=== PATIENT | male | born 1985 | race Caucasian/White ===

== ENCOUNTER 2021-10-22 12:25 | Emergency (ER) | payer SELFPAY ==
[2021-10-22 12:40] VITALS: BP 140/91; PULSE 92; RESP 16; TEMP 37.3; O2SAT 96
== END 2021-10-23 00:19 | disposition left against medical advice (07) ==
LOC: ANHED 15:07
PROVIDERS: PCP Family Medicine
DX: R10.9 Unspecified abdominal pain (principal)
CPT/HCPCS: 99199

== ENCOUNTER 2021-11-01 06:21 | Emergency (ER) | payer SELFPAY ==
--- NOTE | ~2021-11-01 | XR_ITS ---
XR hip LT min 3V w AP pelvis DATE: 11/01/2021 09:43 INDICATION: Left hip pain, unable to bear weight. No trauma. TECHNIQUE: AP pelvis. AP, lateral, crosstable lateral views of left hip COMPARISON: None FINDINGS: The pubic symphysis and sacroiliac joints are intact. No fracture, dislocation, avascular necrosis or bone destruction of the left hip. Hip joint spaces ap pear symmetric and well preserved. IMPRESSION: No significant abnormality Reviewed, dictated and finalized at location A. ASSISTANT IMPRESSION: No significant abnormality
[2021-11-01 06:55] VITALS: BP 152/81; PULSE 94; RESP 16; TEMP 36.2; O2SAT 100
[2021-11-01 07:39] VITALS: BP 152/81; PULSE 94; RESP 20; TEMP 36.2; O2SAT 100
--- NOTE | 2021-11-01 07:39 | PC.NURSE ---
0733- called for triage, pt in bathroom.
--- NOTE | 2021-11-01 09:29 | ED.EXTPRO ---
HPI - Extremity Problem General Chief complaint: Extremity Problem,Nontraumatic Stated complaint: lt leg pain Time Seen by Provider: 11/01/21 09:21 Source: patient Mode of arrival: ambulatory Limitations: no limitations History of Present Illness HPI Narrative: Patient is 35 years old white male presents with nontraumatic pain at the left hip started 1-1/2-week ago. Was seen by his family physician and treated with steroids, NSAIDs and muscle relaxants without any improvement. Patient denies any trauma, fever, chills, nausea, vomiting, recent new physical activities. Patient also denies having similar symptoms. Pain gets worse with flexion or extension of the left hip, no radiation of pain, no numbness, no tingling, no focal neuro deficit Related Data Allergies Allergy/AdvReac Type Severity Reaction Status Date / Time No Known Allergies Allergy Unverified 04/09/18 17:50 Review of Systems Review of Systems: CONSTITUTIONAL: Denies fever, chills, or sweats. EYES: Denies visual changes, redness, or discharge. ENT: Denies rhinorrhea, congestion, sore throat, or otalgia. CARDIOVASCULAR: Denies chest pain, palpitations, or edema. RESPIRATORY: Denies cough or dyspnea. GASTROINTESTINAL: Denies abdominal pain, nausea, vomiting, or diarrhea. GENITOURINARY: Denies dysuria or hematuria. SKIN: Denies rash or itching. MUSCULOSKELETAL: Left hip pain NEUROLOGIC: Denies headache, numbness, or weakness. PSYCHIATRIC: Denies anxiety or depression. Exam Narrative: General appearance: Well-developed, well-nourished Skin: Normal color Head: Normocephalic, nontraumatic Eyes: Clear conjunctiva ENT: Oropharynx normal, ears normal, nose normal Neck: Supple, nontender Chest and respiratory: Airway patent, no respiratory distress, no accessory muscle use Heart: Regular rate/rhythm Abdomen: Soft, nontender, no organomegaly, quiet bowel sounds Vascular: Normal peripheral pulses, normal capillary refill. Musculoskeletal: Slight limited range of motion of the left hip, mild diffuse tenderness left groin area, no bruises, no swelling, no rash, no lymphadenopathy. Back exam showed no abnormality. Neurologic: Alert and oriented ?3, CHEMICAL [employer] SUPERVISOR is normal as tested, no gross motor deficit Course Course Emergency Course: Stable Vital Signs Vital signs: Vital Signs Temperature 36.2 C L 11/01/21 06:55 Pulse Rate 94 11/01/21 06:55 Respiratory Rate 16 11/01/21 06:55 Blood Pressure 152/81 H 11/01/21 06:55 Pulse Oximetry 100 11/01/21 06:55 Temperature 36.2 C L 11/01/21 07:39 Pulse Rate 83 11/01/21 10:53 Respiratory Rate 18 11/01/21 10:53 Blood Pressure 155/83 H 11/01/21 10:53 Pulse Oximetry 95 11/01/21 10:53 MDM - Extremity (Nontraumatic) MDM Narrative Medical decision making narrative: Patient presents with nontraumatic left hip pain for about 1 and half week, no improvement on regular medications. X-ray left hip showed no acute abnormality. Patient will be discharged on NSAID and to follow-up with Ortho for further evaluation. Imaging Data Attestation: I personally reviewed and interpreted this imaging study as follows: Radiologist's impression: Impressions Hip/Pelvis X-Ray 11/01/21 09:53 IMPRESSION: No significant abnormality Critical Care Time Critical Care Time Critical Care Time: No Discharge Plan Discharge Clinical Impression: Acute pain of left hip Patient Disposition: Home, Self-Care Condition: Stable Instructions: Antibiotic Form, Hip Pain (ED) Additional Instructions: Return if symptoms are worsening , call orthopedic for appointment, take Tylenol as as needed for aches and pain, continue home medica
[2021-11-01 10:53] VITALS: BP 155/83; PULSE 83; RESP 18; O2SAT 95
[2021-11-01] MEDS: IBUPROFEN 400 MG TABLET 800 MG PO (11:21)
[2021-11-01] MEDS: HYDROcodone/acetaminophen (*CRX) 7.5-325 MG TABLET 1 TAB PO (12:17)
== END 2021-11-01 12:47 | disposition home or self-care (01) ==
PROVIDERS: Emergency Provider Emergency Medicine
DX: M25.552 Pain in left hip (principal)
CPT/HCPCS: 73502; 99283; A9270

== ENCOUNTER 2022-11-04 10:18 | Outpatient (CLI) | payer OTHER, SELFPAY ==
--- NOTE | ~2022-11-04 | XR_ITS ---
EXAM: XR knee LT min 4V DATE: 11/04/2022 10:41 HISTORY: L KNEE PAIN- CATCHES ,SWELLING,NKI,XMONTHS . COMPARISON: None available. FINDINGS: Normal mineralization. No fracture or dislocation. No lytic or blastic lesion. Moderate me dial and mild lateral joint space narrowing. Tricompartmental osteophytosis, moderate in the patellof emoral compartment. Moderate volume joint fluid. No erosion or periosteal change. Soft tissues within normal limits. IMPRESSION: No acute osseous finding the left knee. Moderate tricompartmental osteoarthritic change. Reviewed, dictated and finalized at location K. MATIC CLIPPER [employer] STRIPPER IMPRESSION: No acute osseous finding the left knee. Moderate tricompartmental o steoarthritic change.
== END 2022-11-04 10:19 | disposition home or self-care (01) ==
PROVIDERS: PCP Internal Medicine; Visit Provider Internal Medicine
DX: M25.562 Pain in left knee (principal); M17.12 Unilateral primary osteoarthritis, left knee
CPT/HCPCS: 73564

== ENCOUNTER 2022-11-23 10:44 | Outpatient (CLI) | payer OTHER, SELFPAY ==
--- NOTE | ~2022-11-23 | MR_ITS ---
EXAMINATION: MR knee LT wo con DATE: 11/23/2022 11:36 INDICATION: Left knee pain. TECHNIQUE: Magnetic resonance imaging (MRI) of the left knee was performed without intravenous contra st. Sequences included axial PD-weighted FS FSE, coronal PD-weighted FSE and PD-weighted FS FSE, sagi ttal PD-weighted FSE, and sagittal T2-weighted FS FSE. COMPARISON: Left knee radiographs 11/04/22 FINDINGS: Medial compartment: Medial meniscus is normal. There is increased signal in cartilage in the medial articular surface of femoral condyle, consistent with softening. There is cartilage surface irregularity of tibial condyle . Osteophytes are noted. Lateral compartment: Lateral meniscus is normal. There is cartilage surface irregularity of femoral condyle and tibial con dyle. Osteophytes are noted. Patellofemoral compartment: There is full-thickness cartilage loss of patellar medial and lateral facets with mild subchondral ed lang-like signal intensity. There is shallow partial-thickness cartilage loss of trochlea. Osteophytes are noted. Ligaments and tendons: The anterior and posterior cruciate ligaments are normal. There are changes of prior sprains of media l collateral ligament and fibular collateral ligament characterized by increased signal intensity pro ximally. There is mild patellar tendinopathy. Fluid: There is a large knee joint effusion. There is mild prepatellar and superficial infrapatellar bursiti s. IMPRESSION: 1. Severe chondrosis of patellofemoral compartment and mild chondrosis of medial and lateral compartm ents. 2. Large knee joint effusion. Reviewed, dictated and finalized at location A. D CLERK IMPRESSION: 1. Severe chondrosis of patellofemoral compartment and mild chondrosis of media l and lateral compartments. 2. Large knee joint effusion.
== END 2022-11-23 10:45 | disposition home or self-care (01) ==
LOC: CHSIMG 10:45
PROVIDERS: PCP Internal Medicine; Visit Provider Internal Medicine
DX: M25.562 Pain in left knee (principal); M25.462 Effusion, left knee; M22.2X2 Patellofemoral disorders, left knee
CPT/HCPCS: 73721